=== PATIENT | female | born 1980 | race Caucasian/White ===

== ENCOUNTER → 2017-08-16 | Outpatient (CLI) | payer MEDICARE ==
[2015-03-23 11:45] VITALS: BP 121/82
--- NOTE | 2017-08-16 13:09 | KCIC ---
Indication: Nephrolithiasis. No prior studies are available for comparison. The right kidney measures 11.4 x 4.0 x 5.6 cm and the left kidney measures 12.8 x 4.9 x 5.3 cm. The cortical thickness and echogenicity is normal. No calculi are detected. No hydronephrosis is identified. The bladder is unremarkable. Bilateral ureteral jets were visualized. IMPRESSION: Unremarkable renal ultrasound. Electronically signed by: Parveen Ayon MD (08/16/2017 1:06 PM) [id number]
== END | disposition home or self-care (01) ==
LOC: KCIC US 11:01
PROVIDERS: ATTEND Nurse Practitioner Family
DX: N20.0 Calculus of kidney (principal)
CPT/HCPCS: 76770

== ENCOUNTER → 2017-09-04 | Outpatient (CLI) | payer OTHER ==
[2015-03-23 11:45] VITALS: BP 121/82
--- NOTE | 2017-09-10 18:09 | EEG ---
DATE OF SERVICE: 09/04/2017 ELECTROENCEPHALOGRAM NUMBER: [id number]. OBJECTIVE: This is a 36-year-old female patient with history of abnormal movements in her eyes. Electroencephalogram was requested to help rule out seizure. METHODS: Twenty electrodes were applied according to the international 10-20 electrode placement system. EKG monitoring, hyperventilation, intermittent photic stimulation, monopolar and bipolar montages are routinely utilized. The record was obtained on a digital system with video monitoring. FINDINGS: 1. Background: The patient was recorded in the awake and drowsy states. No sleep state was recorded. The overall background amplitude is 5-10 microvolts. A posterior dominant rhythm of 8-10 Hz is observed. 2. Abnormalities: No specific epileptiform discharge or electrographic seizure is seen. No focal or diffuse slowing. Muscle artifact noted throughout the entire recording. 3. Activation: Hyperventilation was performed with good efforts and normal response. Intermittent photic stimulation was performed with photic driving. No specific epileptiform discharge or electrographic seizure induced by hyperventilation or intermittent photic stimulation. IMPRESSION: This electroencephalogram is within the broad normal limits of the study for the awake, drowsy, and sleep states. No focal, lateralizing, specific epileptiform discharge or electrographic seizure is seen. Muscle artifact noted throughout the entire recording. DEYSI APONTE MD DR: [email or web address] JOB#: [id number] / [id number] JULIANNA
== END | disposition home or self-care (01) ==
LOC: RT 12:02
PROVIDERS: ATTEND Psychiatry & Neurology Neurology
DX: R06.4 Hyperventilation (principal)
CPT/HCPCS: 95816

== ENCOUNTER → 2017-09-06 | Outpatient (CLI) | payer MEDICARE ==
[2015-03-23 11:45] VITALS: BP 121/82
[~2017-09-06] MED LIST: GADOBUTROL 7.5 MMOL/7.5 ML VIAL IV ONE
--- NOTE | 2017-09-06 10:26 | RAD ---
EXAMINATION: Magnetic resonance imaging (MRI) of the brain and brainstem without and with contrast 09/06/2017 9:00 AM HISTORY: Left temporal headaches. TECHNIQUE: Multiplanar multi-weighted MRI of the brain and brainstem was performed without and with intravenous contrast using the general brain protocol. Contrast information: 6 mL Gadolinium based contrast COMPARISON: May 05, 2004 FINDINGS: The scalp and calvarium are normal. The superior sagittal sinus demonstrates normal venous flow. The corpus callosum is normal in shape and signal intensity. The posterior fossa is unremarkable. Cerebellar tonsils lie at the level of the foramen magnum, within normal limits. The pituitary and sella are normal. The brainstem and craniocervical junction are unremarkable. Diffusion weighted images reveal no hyperintensities to suggest acute cerebral infarction. The susceptibility weighted sequences reveal no evidence of acute or chronic hemorrhage. The ventricles are normal in size and position without evidence of hydrocephalus. There are no areas of abnormal contrast enhancement. The paranasal sinuses are normal. The visualized portions of the mastoids are unremarkable. The orbits appear normal. Normal flow voids are demonstrated in the carotid arteries and basilar artery. IMPRESSION: Normal MRI of the brain. Electronically signed by: Shari Spring MD (09/06/2017 10:22 AM) [id number]
== END | disposition home or self-care (01) ==
LOC: MRI 09:11
PROVIDERS: ATTEND Psychiatry & Neurology Neurology
DX: H53.8 Other visual disturbances (principal); R51 Headache
CPT/HCPCS: 70553; A9585